=== PATIENT | female | born 1980 | race Caucasian/White ===

== ENCOUNTER 2016-06-18 12:51 | Inpatient (IN) | payer BC ==
[~2016-06-18] VITALS: Ht 175.3 cm; Wt 124.7 kg
[2016-06-18] MEDS: methylPREDNISolone 4 MG TABLET. PO SCH ×2 (12:30→17:30)
[~2016-06-18 12:51] MED LIST: methylPREDNISolone 4 MG TABLET. PO SCH
[2016-06-18 13:45] VITALS: BP 115/65
[2016-06-18 15:45] VITALS: BP 115/65
[2016-06-18] MEDS ORDERED: FENTANYL PF 100 MCG/2 ML VIAL. IV PRN (17:00)
[2016-06-18] MEDS ORDERED: PROCHLORPERAZINE 10 MG/2 ML VIAL. IV PRN (18:00)
[2016-06-18] MEDS: HYDROCODONE/APAP 10/325 TABLET. PO SCH (18:00)
[2016-06-18] MEDS: CYCLOBENZAPRINE 10 MG TABLET. PO SCH (18:00)
[2016-06-18] MEDS ORDERED: ONDANSETRON PF 4 MG/2 ML VIAL. IV PRN (18:00)
[2016-06-18] MEDS ORDERED: PROCHLORPERAZINE 25 MG SUPP.RECT. PR PRN (18:00)
[2016-06-18] MEDS: PANTOPRAZOLE 40 MG TABLET.DR. PO SCH (18:30)
[2016-06-18] MEDS ORDERED: methylPREDNISolone 4 MG TABLET. PO ONE (18:30)
--- NOTE | 2016-06-18 19:01 | PDOC1 ---
History and Physical Date of Admission Date of Admission DATE: 06/18/16 TIME: 18:55 Identification/Chief Complaint Chief Complaint acute onset back pain Problems: Source Source: Chart review, Patient History of Present Illness History of Present Illness 36 y.o female with no significant ,past medical hx, transferred from [place] for [facility] back and further eval/tx. 1 day [employer],. lifted some stuff for his dad who is hospitalized for [place] in another institution, she might have heard something "twist" lower back, and since then has had excruciating 10/10 pain, no hx of chronic lumbago in the past, no chronic steroid use, non smoker. Pt rates pain scale 10/.10, no other red flags of back pain i.e., urinary/ fecal incontinence, hx CA or recent injury, or parasthesisas/weakness of legs/ feet Physiatry consulted and I have discussed - will order MRI, medrol dose pack, pain meds and pT/OT She did get fentanyl, morphine etc at [place] and pain scale at its best is 8/ 10. Past Medical History Cardiovascular: No pertinent hx Pulmonary: No pertinent hx GI: No pertinent hx Heme/Onc: No pertinent hx Hepatobiliary: No pertinent hx Psych: No pertinent hx Rheumatologic: No pertinent hx Infectious disease: No pertinent hx ENT: No pertinent hx Renal/: No pertinent hx Endocrine: No pertinent hx Dermatology: No pertinent hx Past Surgical History Past Surgical History: Other (Obstetrical; hx) Family History Family History: No Significant Social History Smoke: No ALCOHOL: none Drugs: None Current Problem List Problem List Problems Medical Problems: (1) Back pain Status: Acute Problems: Current Medications Current Medications Current Medications Fentanyl Citrate (Fentanyl 2ml Vial) 50 mcg PRN Q2HR PRN IV PAIN Last administered on 06/18/16t 18:02; Start 06/18/16 at 17:00 Ketorolac Tromethamine (Toradol) 30 mg PRN Q6HRS PRN IV PAIN; Start 06/18/16 at 17:00; Stop 06/23/16 at 16:59 Morphine Sulfate 2 mg PRN Q2HR PRN IV PAIN; Start 06/18/16 at 18:00 Ondansetron HCl (Zofran) 4 mg PRN Q6HRS PRN IV NAUSEA/VOMITING; Start 06/18/16 at 18:00 Prochlorperazine Edisylate (Compazine) 10 mg PRN Q6HRS PRN IV NAUSEA/VOMITING; Start 06/18/16 at 18:00 Prochlorperazine (Compazine) 25 mg PRN Q12HR PRN [place] NAUSEA/VOMITING; Start at 18:00 Cyclobenzaprine HCl (Flexeril) 10 mg Q6HRS PO ; Start 06/18/16 at 18:00 Acetaminophen/ Hydrocodone Bitart (Lortab 10/325) 1 tab Q6HRS PO ; Start at 18:00 Lidocaine (Lidoderm) 1 patch DAILY TD ; Start 06/19/16 at 09:00 Methylprednisolone (Medrol) 8 mg BID PO ; Start 06/18/16 at 09:00; Stop at 18:19; Status DC Methylprednisolone (Medrol) 4 mg BIDPCLD PO ; Start 06/18/16 at 12:30; Stop at 18:07; Status DC Methylprednisolone (Medrol) 4 mg TIDPC PO ; Start 06/19/16 at 08:30; Stop at 17:31 Methylprednisolone (Medrol) 8 mg QHS PO ; Start 06/19/16 at 21:00; Stop at 21:01 Methylprednisolone (Medrol) 4 mg QIDAFTMEAL PO ; Start 06/20/16 at 09:00; Stop 06/20/16 at 21:01 Methylprednisolone (Medrol) 4 mg TID PO ; Start 06/21/16 at 09:00; Stop at 21:01 Methylprednisolone (Medrol) 4 mg BID PO ; Start 06/22/16 at 09:00; Stop at 21:01 Methylprednisolone (Medrol) 4 mg DAILY PO ; Start 06/23/16 at 09:00; Stop at 09:01 Pantoprazole Sodium (Protonix) 40 mg DAILYAC PO ; Start 06/18/16 at 18:30 Methylprednisolone (Medrol) 16 mg ONCE ONCE PO ; Start 06/18/16 at 18:30; Stop 06/18/16 at 18:31; Status DC Allergies Allergies: Coded Allergies: warfarin (Verified Allergy, Intermediate, 06/18/16) ROS General: No: Appetite, Chills, Fatigue, Malaise, Night Sweats, Other PSYCHOLOGICAL ROS: No: Anxiety, Behavioral Disorder, Concentration difficultie , Decreased libido, Depression, Disorientation, Hallucinations, Hostility, Irritablity, Memory difficulties, Mood Swings, Obsessive thoughts, Other, Physical abuse, Sexual abuse, Sleep disturbances, Suicidal ideation Eyes: No Blurry vision, No Decreased vision, No Double vision, No Dry eyes, No Excessive tearing, No Eye Pain, No Itchy Eyes, No Loss of vision, No Other, No Photophobia, No Scotomata, No Uses contacts, No Uses glasses HEENT: No: Epistaxis, Heacaches, Hearing change, Nasal congestion, Nasal discharge, Oral lesions, Other, Sinus pain, Sneezing, Snoring, Sore Throat, Tinnitus, Vertigo, Visual Changes, Vocal changes ALLERGY AND IMMUNOLOGY: No: Hives, Insect Bite Sensitivity, Itchy/Watery Eyes, Nasal Congestion, Other, Post Nasal Drip, Seasonal Allergies Hematological and Lymphatic: No: Bleeding Problems, Blood Clots, Blood Transfusions, Brusing, Night Sweats, Other, Pallor, Swollen Lymph Nodes ENDOCRINE: No: Breast Changes, Galactorrhea, Hair Pattern Changes, Hot Flashes , Malaise/lethargy, Mood Swings, Other, Palpitations, Polydipsia/polyuria, Skin Changes, Temperature Intolerance, Unexpected Weight Changes Breast: No New/Changing Breast Lumps, No Nipple changes, No Nipple discharge, No Other Respiratory: No: Cough, Hemoptysis, Orthopnea, Other, Pleuritic Pain, SOB with excertion, Shortness of breath, Sputum Changes, Stridor, Tachypnea, Wheezing Cardiovascular: No Chest Pain, No Edema, No Lt Headedness, No Orthopnea, No Other, No Palpitations, No Paroxysmal Noc. Dyspnea Gastrointestinal: No Abdominal Pain, No Constipation, No Diarrhea, No Hematochezia, No Melena, No Nausea, No Other, No Vomiting Genitourinary: No , No , No , No , No , No , No , No Discharge, No Dysuria, No Flank Pain, No Frequency, No Hematuria, No Incontinence, No Other, No Pain, No Retention, No Urgency Musculoskeletal: Yes Other (as per HPI) Neurological: No Behavorial Changes, No Bowel/Bladder ControlChng, No Confusion , No Dizziness, No Gait Disturbance, No Headaches, No Impaired Coord/balance, No Memory Loss, No Numbness/Tingling, No Other, No Seizures, No Speech Problems , No Tremors, No Visual Changes, No Weakness Skin: No Acne, No Dry Skin, No Eczema, No Hair Changes, No Lumps, No Mole Changes, No Mottling, No Nail Changes, No Other, No Pruritus, No Rash, No Skin Lesion Changes Physical Exam General: Alert, Oriented X3, Cooperative, No acute distress HEENT: PERRLA, EOMI Lungs: Clear to auscultation, Normal air movement Heart: S1S2, RRR, no thrills, no rubs, no gallops, no murmurs Cardiovascular: S1, S2 Breasts: Normal, Rt breast nml w/o mass, Lt breast nml w/o mass, Nipples normal Abdomen: Normal bowel sounds Rectal Exam: not examined PELVIC: Nml ext genitalia Extremities: No clubbing, No cyanosis, No edema, Normal pulses, No tenderness/ swelling Skin: No rashes, No breakdown, No significant lesion Neuro: Normal gait, Normal speech, Strength at 5/5 X4 ext, Normal tone, Sensation intact, Cranial nerves 3-12 NL, Reflexes 2+ Psych/Mental Status: Mental status NL, Mood NL Vitals Vitals Vital Signs Date Time Temp Pulse Resp B/P Pulse Ox O2 Delivery O2 Flow Rate FiO2 06/18/16 18:42 Room Air 06/18/16 18:02 2.0 06/18/16 15:45 97.3 68 18 115/65 99 97.3 VTE Prophylaxis Ordered VTE Prophylaxis Devices: Yes VTE Pharmacological Prophylaxi: Yes Assessment/Plan Assessment/Plan 1. Acute back pain after lifting 2. Obesity PLAN: MRI back PTY/OT pain meds Physiatry consult - done and discussed BAsic labs in AM Dw Dr. Espinoza, RN and pt VIANEY GORE MD Jun 18, 2016 19:01
[2016-06-18 19:53] VITALS: BP 117/51
[2016-06-18] MEDS: MORPHINE SULFATE 2 MG/ML DISP.SYRIN. IV PRN (20:52)
[2016-06-18] MEDS: KETOROLAC TROMETHAMINE 30 MG/ML INJ. IV PRN (20:55)
[2016-06-18 23:13] VITALS: BP 108/45
[2016-06-19] MEDS: CYCLOBENZAPRINE 10 MG TABLET. PO SCH ×4 (00:17→17:43)
[2016-06-19] MEDS: HYDROCODONE/APAP 10/325 TABLET. PO SCH ×4 (00:18→17:43)
[2016-06-19] MEDS: MORPHINE SULFATE 2 MG/ML DISP.SYRIN. IV PRN ×4 (01:19→20:14)
--- NOTE | 2016-06-19 02:18 | CONS ---
DATE OF CONSULTATION: 06/18/2016 ATTENDING PHYSICIAN: Kira Clinton MD The patient was seen at the request of Dr. Hayden for rehab evaluation. ROOM: 428. 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 The patient was visiting her father who was hospitalized at [facility] in [place], [place] last night and picked up a bag; while trying to pick up and delivery driver, she started having severe lower back pain and she had difficulty to try to stand back up with on her knees. Her 14-year-old son has to help her get up. She went home. She used ice packs, ibuprofen and Icy Hot. She did not sleep well last night and at 6 o'clock this morning was seen at [facility], had a CT scan of the lumbar spine, which failed to reveal any acute abnormality. She was transferred here for further evaluation and treatment. The patient denies any chronic lower back pain, but she had sciatica while with her children. The patient admits some numbness and tingling sensation over the left thigh, lateral aspect. The patient denies any trouble with her bowel or bladder control. The patient admits some nausea while getting morphine. The patient lives with her and three children in [place], [place] area home, had multiple stairs to manage. She has been independent with her mobility and self-care skills prior to the present hospitalization. She had hysterectomy done recently. PHYSICAL EXAMINATION: Today revealed young female patient is alert, oriented to time, place, person and circumstance and follows commands appropriately. She is in moderate distress about her back pain. She had painful limited movements of her lumbar spine with moderate degree of left lower thoracic and lumbar paraspinal muscle spasm and tenderness to palpation over left lower thoracic and lumbar paraspinal muscles extending over to sacroiliac joint area. Straight leg raising test causes pain in her lower back on the left side. She had 5/5 grade muscle strength in her lower extremities. Deep tendon reflexes are 2+ and symmetrical and she had slightly decreased touch and pinprick sensation over left lateral femoral cutaneous nerve distribution of left thigh and she had otherwise equal perception of touch and pinprick sensation bilaterally. She had positive Tinel sign over left lateral femoral cutaneous nerve at the inguinal ligament area. She had pain free range of motion on both hip joints. She had crepitus on range of motion of both knee joints without any obvious knee joint effusion. She can roll from side to side despite the pain. I have not tested her transfers or ambulation skills at this time. She is apparently walking to the bathroom using a roller walker. Her skin is intact at this time. ASSESSMENT: Young female with acute left lower thoracic and lumbosacral sprain with left lumbar radiculitis. No clinical evidence of ongoing lumbar radiculopathy to rule out associated herniated disk and she also had left lateral femoral cutaneous nerve lesion with meralgia paresthetica left thigh, mild degenerative joint disease of both knees and mild obesity. RECOMMENDATIONS: Agree with the plans for MRI scan, to start her on Medrol Dosepak, Protonix, hydrocodone, and Flexeril, to ask physical therapy to see her, to also ask [employer] [facility] [facility] [employer] to try her with lumbar corset for her to use while up, hopefully home when her pain is under better control with outpatient followup, to consider trigger point injection to her left sacroiliac joint area and left lumbar paraspinal muscles if the pain persists. Dr. Hayden, I appreciate asking me to participate in the care of this interesting patient. I will be glad to follow her with you as needed for her rehabilitation. VANE TATE MD DR: URIEL/maylin JOB#: [id number] / [id number]
[2016-06-19 03:05] VITALS: BP 108/60
[2016-06-19 05:39] LABS: BASO % 0 % (0-3); EOS % 0 % (0-3); HEMATOCRIT 41.6 % (36.0-47.0); LYMPH # 1.4 x10^3/uL (1.0-4.8); LYMPH % 15 % (24-48); MEAN CORPUSCULAR HEMOGLOBIN 28 pg (25-35); MEAN CORPUSCULAR HGB CONC 34 g/dL (31-37); MEAN CORPUSCULAR VOLUME 84 fL (79-100); MONO % 3 % (0-9); NEUT % 82 % (31-73); PLATELET COUNT 237 x10^3/uL (140-400); RED BLOOD COUNT 4.96 x10^6/uL (3.50-5.40); RED CELL DISTRIBUTION WIDTH 13.3 % (11.5-14.5); WHITE BLOOD COUNT 9.7 x10^3/uL (4.0-11.0)
[2016-06-19 05:43] LABS: PROTHROMBIN TIME PATIENT 12.9 SEC (11.7-14.0)
[2016-06-19] MEDS: PANTOPRAZOLE 40 MG TABLET.DR. PO SCH (05:46)
[2016-06-19] MEDS: KETOROLAC TROMETHAMINE 30 MG/ML INJ. IV PRN (05:49)
[2016-06-19 06:00] LABS: CALCIUM 8.9 mg/dL (8.5-10.1); GFR 62.4; POTASSIUM 4.3 mmol/L (3.5-5.1)
[2016-06-19 07:00] VITALS: BP 93/53
[2016-06-19] MEDS: methylPREDNISolone 4 MG TABLET. PO SCH ×3 (08:02→17:43)
[2016-06-19] MEDS: LIDOCAINE (700MG/PATCH) PATCH. TD SCH (08:04)
--- NOTE | 2016-06-19 08:22 | ACF ---
Admit Criteria Forms Admit Criteria Forms Admit Criteria Forms BACK PAIN Clinical Indications for Admission to Inpatient Care (Place 'X' for any and all applicable criteria): Admission is indicated for ANY ONE of the following (1)(2)(3)(4)(5)(6): [X]I. Inpatient admission required rather than observation care (Also use Back Pain: Observation Care as appropriate) because of ANY ONE of the following [X]a) Severe pain requiring acute inpatient management [ ]b) Immediate inpatient surgery [ ]c) Other condition, treatment or monitoring requiring inpatient admission [ ]II. Spine fracture with significant damage or threat of damage to vertebral column or spinal cord [ ]III. Progressive or severe neurologic deficit [ ]IV. Suspected spinal infection (e.g., epidural abscess, vertebral osteomyelitis)(10) [ ]V. Suspected cause requires inpatient treatment (eg, aortic dissection) [ ]. Cauda equina syndrome as indicated by ANY ONE of the following (9): [ ]a) Bowel dysfunction [ ]b) Bladder dysfunction [ ]c) Saddle anesthesia [ ]d) Neurologic abnormality suggesting cauda equina impingement Extended stay beyond goal length of stay may be needed for (3)(25): [ ]a) Spinal cord compression from stenosis, disk, or tumor (8)(9) [ ]b) Traumatic or pathologic vertebral fracture (33) [ ]c) Vertebral infection(10) [ ]d) Severe pain that is difficult to control [ ]e) Older patients(65 years or older) The original [employer] content created by [employer] has been revised. The portions of the content which have been revised are identified through the use of italic text or in bold, and [facility] [employer] has neither reviewed nor approved the modified material. All other unmodified content is copyright [employer]. Please see references footnoted in the original [employer] edition 2016 CAMERON TORRES Jun 19, 2016 08:22
--- NOTE | 2016-06-19 09:09 | PDOC ---
PROGRESS NOTES Subjective Subjective She admits continued low back pain and numbness left thigh. Objective Objective Vital Signs Date Time Temp Pulse Resp B/P Pulse Ox O2 Delivery O2 Flow Rate FiO2 06/19/16 08:04 Room Air 06/19/16 07:00 97.8 80 18 93/53 95 97.8 06/18/16 18:02 2.0 Intake and Output 06/19/16 07:00 Intake Total 0 ml Output Total 2 ml Balance -2 ml Intake Oral 0 ml Output Urine Total 2 ml Physical Exam Physical Exam She is alert,comfortable supine in bed and continues with painfully limited lumbar spine ROM and tenderness to palpation over left lower thoracic and lumbar paraspinal muscles and sacroiliac joint and decreased sensory perception over left lateral femoral cutaneous nerve distriution. Assessment Assessment Problems Medical Problems: (1) Back pain Status: Acute Plan Plan of Care I have offered her trigger point injections to left lumbar paraspinal muscles and sacroiliac joint area and she would like to wait. Comment Review of Relevant I have reviewed the following items stacie (where applicable) has been applied. Labs Laboratory Tests Test 06/19/16 04:40 White Blood Count 9.7x10^3/uL (4.0-11.0) Red Blood Count 4.96x10^6/uL (3.50-5.40) Hemoglobin 14.0g/dL (12.0-15.5) Hematocrit 41.6% (36.0-47.0) Mean Corpuscular Volume 84fL (79-100) Mean Corpuscular Hemoglobin 28pg (25-35) Mean Corpuscular Hemoglobin Concent 34g/dL (31-37) Red Cell Distribution Width 13.3% (11.5-14.5) Platelet Count 237x10^3/uL (140-400) Neutrophils (%) (Auto) 82% (31-73) Lymphocytes (%) (Auto) 15% (24-48) Monocytes (%) (Auto) 3% (0-9) Eosinophils (%) (Auto) 0% (0-3) Basophils (%) (Auto) 0% (0-3) Neutrophils # (Auto) 8.0x10^3uL (1.8-7.7) Lymphocytes # (Auto) 1.4x10^3/uL (1.0-4.8) Monocytes # (Auto) 0.3x10^3/uL (0.0-1.1) Eosinophils # (Auto) 0.0x10^3/uL (0.0-0.7) Basophils # (Auto) 0.0x10^3/uL (0.0-0.2) Prothrombin Time 12.9SEC (11.7-14.0) Prothromb Time International Ratio 1.0 (0.8-1.1) Sodium Level 139mmol/L (136-145) Potassium Level 4.3mmol/L (3.5-5.1) Chloride Level 103mmol/L (98-107) Carbon Dioxide Level 29mmol/L (21-32) Anion Gap 7 (6-14) Blood Urea Nitrogen 12mg/dL (7-20) Creatinine 1.0mg/dL (0.6-1.0) Estimated GFR (Cockcroft-Gault) 62.4 Glucose Level 123mg/dL (70-99) Calcium Level 8.9mg/dL (8.5-10.1) Laboratory Tests Test 06/19/16 04:40 White Blood Count 9.7x10^3/uL (4.0-11.0) Red Blood Count 4.96x10^6/uL (3.50-5.40) Hemoglobin 14.0g/dL (12.0-15.5) Hematocrit 41.6% (36.0-47.0) Mean Corpuscular Volume 84fL (79-100) Mean Corpuscular Hemoglobin 28pg (25-35) Mean Corpuscular Hemoglobin Concent 34g/dL (31-37) Red Cell Distribution Width 13.3% (11.5-14.5) Platelet Count 237x10^3/uL (140-400) Neutrophils (%) (Auto) 82% (31-73) Lymphocytes (%) (Auto) 15% (24-48) Monocytes (%) (Auto) 3% (0-9) Eosinophils (%) (Auto) 0% (0-3) Basophils (%) (Auto) 0% (0-3) Neutrophils # (Auto) 8.0x10^3uL (1.8-7.7) Lymphocytes # (Auto) 1.4x10^3/uL (1.0-4.8) Monocytes # (Auto) 0.3x10^3/uL (0.0-1.1) Eosinophils # (Auto) 0.0x10^3/uL (0.0-0.7) Basophils # (Auto) 0.0x10^3/uL (0.0-0.2) Prothrombin Time 12.9SEC (11.7-14.0) Prothromb Time International Ratio 1.0 (0.8-1.1) Sodium Level 139mmol/L (136-145) Potassium Level 4.3mmol/L (3.5-5.1) Chloride Level 103mmol/L (98-107) Carbon Dioxide Level 29mmol/L (21-32) Anion Gap 7 (6-14) Blood Urea Nitrogen 12mg/dL (7-20) Creatinine 1.0mg/dL (0.6-1.0) Estimated GFR (Cockcroft-Gault) 62.4 Glucose Level 123mg/dL (70-99) Calcium Level 8.9mg/dL (8.5-10.1) Medications Current Medications Fentanyl Citrate (Fentanyl 2ml Vial) 50 mcg PRN Q2HR PRN IV PAIN Last administered on 06/18/16 18:02; Start 06/18/16 at 17:00 Ketorolac Tromethamine (Toradol) 30 mg PRN Q6HRS PRN IV PAIN Last administered on 06/19/16 05:49; Start 06/18/16 at 17:00; Stop 06/23/16 at 16:59 Morphine Sulfate 2 mg PRN Q2HR PRN IV PAIN Last administered on 06/19/16 08:04 ; Start 06/18/16 at 18:00 Ondansetron HCl (Zofran) 4 mg PRN Q6HRS PRN IV NAUSEA/VOMITING; Start 06/18/16 at 18:00 Prochlorperazine Edisylate (Compazine) 10 mg PRN Q6HRS PRN IV NAUSEA/VOMITING; Start 06/18/16 at 18:00 Prochlorperazine (Compazine) 25 mg PRN Q12HR PRN [place] NAUSEA/VOMITING; Start at 18:00 Cyclobenzaprine HCl (Flexeril) 10 mg Q6HRS PO Last administered on 06/19/16 05 :46; Start 06/18/16 at 18:00 Acetaminophen/ Hydrocodone Bitart (Lortab 10/325) 1 tab Q6HRS PO Last administered on 06/19/16 05:46; Start 06/18/16 at 18:00 Lidocaine (Lidoderm) 1 patch DAILY TD Last administered on 06/19/16 08:04; Start 06/19/16 at 09:00 Methylprednisolone (Medrol) 8 mg BID PO ; Start 06/18/16 at 09:00; Stop at 18:19; Status DC Methylprednisolone (Medrol) 4 mg BIDPCLD PO ; Start 06/18/16 at 12:30; Stop at 18:07; Status DC Methylprednisolone (Medrol) 4 mg TIDPC PO Last administered on 06/19/16 08:02 ; Start 06/19/16 at 08:30; Stop 06/19/16 at 17:31 Methylprednisolone (Medrol) 8 mg QHS PO ; Start 06/19/16 at 21:00; Stop at 21:01 Methylprednisolone (Medrol) 4 mg QIDAFTMEAL PO ; Start 06/20/16 at 09:00; Stop 06/20/16 at 21:01 Methylprednisolone (Medrol) 4 mg TID PO ; Start 06/21/16 at 09:00; Stop at 21:01 Methylprednisolone (Medrol) 4 mg BID PO ; Start 06/22/16 at 09:00; Stop at 21:01 Methylprednisolone (Medrol) 4 mg DAILY PO ; Start 06/23/16 at 09:00; Stop at 09:01 Pantoprazole Sodium (Protonix) 40 mg DAILYAC PO Last administered on 06/19/16 05:46; Start 06/18/16 at 18:30 Methylprednisolone (Medrol) 16 mg ONCE ONCE PO Last administered on 06/18/16 18:30; Start 06/18/16 at 18:30; Stop 06/18/16 at 18:31; Status DC Vitals/I & O Vital Sign - Last 24 Hours 06/18/16 06/18/16 06/18/16 06/18/16 13:45 15:45 18:00 18:02 Temp 97.3 97.3 97.3 97.3 Pulse 68 68 Resp 18 18 B/P 115/65 115/65 Pulse Ox 99 99 O2 Delivery Room Air Room Air Nasal Cannula Nasal Cannula O2 Flow Rate 2.0 2.0 06/18/16 06/18/16 06/18/16 06/18/16 18:32 18:42 19:53 20:10 Temp 97.5 97.5 Pulse 79 Resp 18 B/P 117/51 Pulse Ox 92 O2 Delivery Room Air Room Air Room Air Room Air 06/18/16 06/18/16 06/19/16 06/19/16 20:52 23:13 00:18 01:19 Temp 98.2 98.2 Pulse 66 Resp 18 B/P 108/45 Pulse Ox 93 O2 Delivery Room Air Room Air Nasal Cannula Room Air 06/19/16 06/19/16 06/19/16 06/19/16 01:19 02:00 03:05 05:46 Temp 97.9 97.9 Pulse 66 Resp 18 B/P 108/60 Pulse Ox 91 O2 Delivery Room Air Room Air Room Air Nasal Cannula 06/19/16 06/19/16 06/19/16 07:00 08:00 08:04 Temp 97.8 97.8 Pulse 80 Resp 18 B/P 93/53 Pulse Ox 95 O2 Delivery Room Air Room Air Room Air Intake and Output 06/18/16 06/18/16 06/19/16 15:00 23:00 07:00 Intake Total 0 ml Output Total 2 ml Balance 0 ml -2 ml VANE TATE MD Jun 19, 2016 09:09
[2016-06-19 10:54] VITALS: BP 97/49
[2016-06-19] MEDS ORDERED: LIDOCAINE (700MG/PATCH) PATCH. TD ONE (12:00)
--- NOTE | 2016-06-19 13:41 | PDOC ---
PROGRESS NOTES Chief Complaint Chief Complaint 1. Acute back pain after lifting, 2/2 muscle spasm 2. Obesity PLAN: MRI back pending PTY/OT pain meds Physiatry consult - done and discussed BAsic labs in AM Dw Dr. Espinoza, RN and pt dc tmr History of Present Illness History of Present Illness back pain slightly better Vitals Vitals Vital Signs Date Time Temp Pulse Resp B/P Pulse Ox O2 Delivery O2 Flow Rate FiO2 06/19/16 12:14 Room Air 06/19/16 10:54 97.5 70 18 97/49 94 97.5 06/18/16 18:02 2.0 Physical Exam General: Alert, Oriented X3, Cooperative, No acute distress Heart: Regular rate, Normal S1, Normal S2 Lungs: Clear Abdomen: Normal bowel sounds Extremities: No clubbing, No cyanosis, No edema, Normal pulses, No tenderness/ swelling Skin: No rashes, No breakdown, No significant lesion Labs LABS Laboratory Tests Test 06/19/16 04:40 White Blood Count 9.7x10^3/uL (4.0-11.0) Red Blood Count 4.96x10^6/uL (3.50-5.40) Hemoglobin 14.0g/dL (12.0-15.5) Hematocrit 41.6% (36.0-47.0) Mean Corpuscular Volume 84fL (79-100) Mean Corpuscular Hemoglobin 28pg (25-35) Mean Corpuscular Hemoglobin Concent 34g/dL (31-37) Red Cell Distribution Width 13.3% (11.5-14.5) Platelet Count 237x10^3/uL (140-400) Neutrophils (%) (Auto) 82% (31-73) Lymphocytes (%) (Auto) 15% (24-48) Monocytes (%) (Auto) 3% (0-9) Eosinophils (%) (Auto) 0% (0-3) Basophils (%) (Auto) 0% (0-3) Neutrophils # (Auto) 8.0x10^3uL (1.8-7.7) Lymphocytes # (Auto) 1.4x10^3/uL (1.0-4.8) Monocytes # (Auto) 0.3x10^3/uL (0.0-1.1) Eosinophils # (Auto) 0.0x10^3/uL (0.0-0.7) Basophils # (Auto) 0.0x10^3/uL (0.0-0.2) Prothrombin Time 12.9SEC (11.7-14.0) Prothromb Time International Ratio 1.0 (0.8-1.1) Sodium Level 139mmol/L (136-145) Potassium Level 4.3mmol/L (3.5-5.1) Chloride Level 103mmol/L (98-107) Carbon Dioxide Level 29mmol/L (21-32) Anion Gap 7 (6-14) Blood Urea Nitrogen 12mg/dL (7-20) Creatinine 1.0mg/dL (0.6-1.0) Estimated GFR (Cockcroft-Gault) 62.4 Glucose Level 123mg/dL (70-99) Calcium Level 8.9mg/dL (8.5-10.1) Review of Systems Review of Systems no fever, chills, sob or chest pain Assessment and Plan Assessmemt and Plan Problems Medical Problems: (1) Back pain Status: Acute Problems: Comment Review of Relevant I have reviewed the following items stacie (where applicable) has been applied. Labs Laboratory Tests Test 06/19/16 04:40 White Blood Count 9.7x10^3/uL (4.0-11.0) Red Blood Count 4.96x10^6/uL (3.50-5.40) Hemoglobin 14.0g/dL (12.0-15.5) Hematocrit 41.6% (36.0-47.0) Mean Corpuscular Volume 84fL (79-100) Mean Corpuscular Hemoglobin 28pg (25-35) Mean Corpuscular Hemoglobin Concent 34g/dL (31-37) Red Cell Distribution Width 13.3% (11.5-14.5) Platelet Count 237x10^3/uL (140-400) Neutrophils (%) (Auto) 82% (31-73) Lymphocytes (%) (Auto) 15% (24-48) Monocytes (%) (Auto) 3% (0-9) Eosinophils (%) (Auto) 0% (0-3) Basophils (%) (Auto) 0% (0-3) Neutrophils # (Auto) 8.0x10^3uL (1.8-7.7) Lymphocytes # (Auto) 1.4x10^3/uL (1.0-4.8) Monocytes # (Auto) 0.3x10^3/uL (0.0-1.1) Eosinophils # (Auto) 0.0x10^3/uL (0.0-0.7) Basophils # (Auto) 0.0x10^3/uL (0.0-0.2) Prothrombin Time 12.9SEC (11.7-14.0) Prothromb Time International Ratio 1.0 (0.8-1.1) Sodium Level 139mmol/L (136-145) Potassium Level 4.3mmol/L (3.5-5.1) Chloride Level 103mmol/L (98-107) Carbon Dioxide Level 29mmol/L (21-32) Anion Gap 7 (6-14) Blood Urea Nitrogen 12mg/dL (7-20) Creatinine 1.0mg/dL (0.6-1.0) Estimated GFR (Cockcroft-Gault) 62.4 Glucose Level 123mg/dL (70-99) Calcium Level 8.9mg/dL (8.5-10.1) Laboratory Tests Test 06/19/16 04:40 White Blood Count 9.7x10^3/uL (4.0-11.0) Red Blood Count 4.96x10^6/uL (3.50-5.40) Hemoglobin 14.0g/dL (12.0-15.5) Hematocrit 41.6% (36.0-47.0) Mean Corpuscular Volume 84fL (79-100) Mean Corpuscular Hemoglobin 28pg (25-35) Mean Corpuscular Hemoglobin Concent 34g/dL (31-37) Red Cell Distribution Width 13.3% (11.5-14.5) Platelet Count 237x10^3/uL (140-400) Neutrophils (%) (Auto) 82% (31-73) Lymphocytes (%) (Auto) 15% (24-48) Monocytes (%) (Auto) 3% (0-9) Eosinophils (%) (Auto) 0% (0-3) Basophils (%) (Auto) 0% (0-3) Neutrophils # (Auto) 8.0x10^3uL (1.8-7.7) Lymphocytes # (Auto) 1.4x10^3/uL (1.0-4.8) Monocytes # (Auto) 0.3x10^3/uL (0.0-1.1) Eosinophils # (Auto) 0.0x10^3/uL (0.0-0.7) Basophils # (Auto) 0.0x10^3/uL (0.0-0.2) Prothrombin Time 12.9SEC (11.7-14.0) Prothromb Time International Ratio 1.0 (0.8-1.1) Sodium Level 139mmol/L (136-145) Potassium Level 4.3mmol/L (3.5-5.1) Chloride Level 103mmol/L (98-107) Carbon Dioxide Level 29mmol/L (21-32) Anion Gap 7 (6-14) Blood Urea Nitrogen 12mg/dL (7-20) Creatinine 1.0mg/dL (0.6-1.0) Estimated GFR (Cockcroft-Gault) 62.4 Glucose Level 123mg/dL (70-99) Calcium Level 8.9mg/dL (8.5-10.1) Medications Current Medications Fentanyl Citrate (Fentanyl 2ml Vial) 50 mcg PRN Q2HR PRN IV PAIN Last administered on 06/18/16 18:02; Start 06/18/16 at 17:00 Ketorolac Tromethamine (Toradol) 30 mg PRN Q6HRS PRN IV PAIN Last administered on 06/19/16 05:49; Start 06/18/16 at 17:00; Stop 06/23/16 at 16:59 Morphine Sulfate 2 mg PRN Q2HR PRN IV PAIN Last administered on 06/19/16 08:04 ; Start 06/18/16 at 18:00 Ondansetron HCl (Zofran) 4 mg PRN Q6HRS PRN IV NAUSEA/VOMITING; Start 06/18/16 at 18:00 Prochlorperazine Edisylate (Compazine) 10 mg PRN Q6HRS PRN IV NAUSEA/VOMITING; Start 06/18/16 at 18:00 Prochlorperazine (Compazine) 25 mg PRN Q12HR PRN [place] NAUSEA/VOMITING; Start at 18:00 Cyclobenzaprine HCl (Flexeril) 10 mg Q6HRS PO Last administered on 06/19/16 12 :14; Start 06/18/16 at 18:00 Acetaminophen/ Hydrocodone Bitart (Lortab 10/325) 1 tab Q6HRS PO Last administered on 06/19/16 12:14; Start 06/18/16 at 18:00 Lidocaine (Lidoderm) 1 patch DAILY TD Last administered on 06/19/16 08:04; Start 06/19/16 at 09:00 Methylprednisolone (Medrol) 8 mg BID PO ; Start 06/18/16 at 09:00; Stop at 18:19; Status DC Methylprednisolone (Medrol) 4 mg BIDPCLD PO ; Start 06/18/16 at 12:30; Stop at 18:07; Status DC Methylprednisolone (Medrol) 4 mg TIDPC PO Last administered on 06/19/16 12:16 ; Start 06/19/16 at 08:30; Stop 06/19/16 at 17:31 Methylprednisolone (Medrol) 8 mg QHS PO ; Start 06/19/16 at 21:00; Stop at 21:01 Methylprednisolone (Medrol) 4 mg QIDAFTMEAL PO ; Start 06/20/16 at 09:00; Stop 06/20/16 at 21:01 Methylprednisolone (Medrol) 4 mg TID PO ; Start 06/21/16 at 09:00; Stop at 21:01 Methylprednisolone (Medrol) 4 mg BID PO ; Start 06/22/16 at 09:00; Stop at 21:01 Methylprednisolone (Medrol) 4 mg DAILY PO ; Start 06/23/16 at 09:00; Stop at 09:01 Pantoprazole Sodium (Protonix) 40 mg DAILYAC PO Last administered on 06/19/16 05:46; Start 06/18/16 at 18:30 Methylprednisolone (Medrol) 16 mg ONCE ONCE PO Last administered on 06/18/16 18:30; Start 06/18/16 at 18:30; Stop 06/18/16 at 18:31; Status DC Lidocaine (Lidoderm) 1 patch 1X ONCE TD Last administered on 06/19/16t 12:14; Start 06/19/16 at 12:00; Stop 06/19/16 at 12:01; Status DC Vitals/I & O Vital Sign - Last 24 Hours 06/18/16 06/18/16 06/18/16 06/18/16 13:45 15:45 18:00 18:02 Temp 97.3 97.3 97.3 97.3 Pulse 68 68 Resp 18 18 B/P 115/65 115/65 Pulse Ox 99 99 O2 Delivery Room Air Room Air Nasal Cannula Nasal Cannula O2 Flow Rate 2.0 2.0 06/18/16 06/18/16 06/18/16 06/18/16 18:32 18:42 19:53 20:10 Temp 97.5 97.5 Pulse 79 Resp 18 B/P 117/51 Pulse Ox 92 O2 Delivery Room Air Room Air Room Air Room Air 06/18/16 06/18/16 06/19/16 06/19/16 20:52 23:13 00:18 01:19 Temp 98.2 98.2 Pulse 66 Resp 18 B/P 108/45 Pulse Ox 93 O2 Delivery Room Air Room Air Nasal Cannula Room Air 06/19/16 06/19/16 06/19/16 06/19/16 01:19 03:05 05:46 07:00 Temp 97.9 97.8 97.9 97.8 Pulse 66 80 Resp 18 18 B/P 108/60 93/53 Pulse Ox 91 95 O2 Delivery Room Air Room Air Nasal Cannula Room Air 06/19/16 06/19/16 06/19/16 06/19/16 08:00 08:04 08:35 10:54 Temp 97.5 97.5 Pulse 70 Resp 18 B/P 97/49 Pulse Ox 94 O2 Delivery Room Air Room Air Room Air Room Air 06/19/16 12:14 O2 Delivery Room Air Intake and Output 06/18/16 06/18/16 06/19/16 15:00 23:00 07:00 Intake Total 0 ml Output Total 2 ml Balance 0 ml -2 ml ASHLI VILLALOBOS MD Jun 19, 2016 13:41
[2016-06-19] MEDS ORDERED: ONDANSETRON PF 4 MG/2 ML VIAL. IV PRN (13:45)
[2016-06-19] MEDS ORDERED: ACETAMINOPHEN 325 MG TABLET. PO PRN (13:45)
--- NOTE | 2016-06-19 14:09 | RAD ---
PROCEDURE MRI lumbar spine without contrast. HISTORY Low back pain and left leg radiculopathy, symptoms for 2 days. TECHNIQUE Sagittal T1, sagittal T2, sagittal STIR, axial T1, and axial T2 sequences are provided. COMPARISON CT from 1 day earlier. FINDINGS There is no malalignment. There is no marrow edema. There is no worrisome marrow lesion. There is an L5 hemangioma. There is disc desiccation at L3-L4, disc height is maintained. The conus medullaris is normal in signal intensity and in position. Subcutaneous edema is noted. Degenerative findings by individual level are as follows: L1-L2, L2-L3: There is no canal or foraminal compromise. L3-L4: There is a minimal disc bulge. There is a left subarticular/foraminal protrusion with annular fissure. This contacts the exiting nerve root. There is no canal stenosis. L4-L5: Minimal disc bulge and facet hypertrophy are noted with slight right lateral recess narrowing but no canal stenosis. L5-S1: There is facet hypertrophy without canal or foraminal compromise. IMPRESSION Left subarticular/foraminal protrusion at L3-L4 contacting the exiting L3 nerve root. Electronically signed by: Case Greco MD (Jun 19, 2016 14:07:57)
[2016-06-19 19:00] VITALS: BP 118/62
[2016-06-19 19:25] LABS: MAGNESIUM 1.7 mg/dL (1.8-2.4); PHOSPHORUS 3.3 mg/dL (2.6-4.7)
[2016-06-19] MEDS ORDERED: methylPREDNISolone 4 MG TABLET. PO SCH (21:00)
[2016-06-19 23:06] VITALS: BP 102/50
[2016-06-20] MEDS: HYDROCODONE/APAP 10/325 TABLET. PO SCH ×2 (00:12→07:26)
[2016-06-20] MEDS: CYCLOBENZAPRINE 10 MG TABLET. PO SCH ×4 (00:12→17:38)
[2016-06-20] MEDS: MORPHINE SULFATE 2 MG/ML DISP.SYRIN. IV PRN ×2 (03:21→21:18)
[2016-06-20 03:25] VITALS: BP 106/57
[2016-06-20 07:00] VITALS: BP 124/79
--- NOTE | 2016-06-20 09:26 | PDOC ---
PROGRESS NOTES Subjective Subjective She admits continued low back pain. Objective Objective Vital Signs Date Time Temp Pulse Resp B/P Pulse Ox O2 Delivery O2 Flow Rate FiO2 06/20/16 07:26 16 Room Air 06/20/16 07:00 98.2 75 124/79 96 98.2 06/18/16 18:02 2.0 Intake and Output 06/20/16 06:59 # Voids 5 Physical Exam Physical Exam She is alert,supine in bed and and continues with painfully limited lumbar spine ROM. 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 Assessment Assessment Problems Medical Problems: (1) Back pain Status: Acute Plan Plan of Care To proceed with injecting painful left lumbar paraspinal muscles and if needed sacroiliac joint with depomedrol and to try percocet in place of hydrocodone. Comment Review of Relevant I have reviewed the following items stacie (where applicable) has been applied. Labs Laboratory Tests Test 06/19/16 04:40 06/19/16 19:00 White Blood Count 9.7x10^3/uL (4.0-11.0) Red Blood Count 4.96x10^6/uL (3.50-5.40) Hemoglobin 14.0g/dL (12.0-15.5) Hematocrit 41.6% (36.0-47.0) Mean Corpuscular Volume 84fL (79-100) Mean Corpuscular Hemoglobin 28pg (25-35) Mean Corpuscular Hemoglobin Concent 34g/dL (31-37) Red Cell Distribution Width 13.3% (11.5-14.5) Platelet Count 237x10^3/uL (140-400) Neutrophils (%) (Auto) 82% (31-73) Lymphocytes (%) (Auto) 15% (24-48) Monocytes (%) (Auto) 3% (0-9) Eosinophils (%) (Auto) 0% (0-3) Basophils (%) (Auto) 0% (0-3) Neutrophils # (Auto) 8.0x10^3uL (1.8-7.7) Lymphocytes # (Auto) 1.4x10^3/uL (1.0-4.8) Monocytes # (Auto) 0.3x10^3/uL (0.0-1.1) Eosinophils # (Auto) 0.0x10^3/uL (0.0-0.7) Basophils # (Auto) 0.0x10^3/uL (0.0-0.2) Prothrombin Time 12.9SEC (11.7-14.0) Prothromb Time International Ratio 1.0 (0.8-1.1) Sodium Level 139mmol/L (136-145) Potassium Level 4.3mmol/L (3.5-5.1) Chloride Level 103mmol/L (98-107) Carbon Dioxide Level 29mmol/L (21-32) Anion Gap 7 (6-14) Blood Urea Nitrogen 12mg/dL (7-20) Creatinine 1.0mg/dL (0.6-1.0) Estimated GFR (Cockcroft-Gault) 62.4 Glucose Level 123mg/dL (70-99) Calcium Level 8.9mg/dL (8.5-10.1) Phosphorus Level 3.3mg/dL (2.6-4.7) Magnesium Level 1.7mg/dL (1.8-2.4) Laboratory Tests Test 06/19/16 19:00 Phosphorus Level 3.3mg/dL (2.6-4.7) Magnesium Level 1.7mg/dL (1.8-2.4) Medications Current Medications Fentanyl Citrate (Fentanyl 2ml Vial) 50 mcg PRN Q2HR PRN IV PAIN Last administered on 06/18/16 18:02; Start 06/18/16 at 17:00 Ketorolac Tromethamine (Toradol) 30 mg PRN Q6HRS PRN IV PAIN Last administered on 06/19/16 05:49; Start 06/18/16 at 17:00; Stop 06/23/16 at 16:59 Morphine Sulfate 2 mg PRN Q2HR PRN IV PAIN Last administered on 06/20/16 03:21 ; Start 06/18/16 at 18:00 Ondansetron HCl (Zofran) 4 mg PRN Q6HRS PRN IV NAUSEA/VOMITING; Start 06/18/16 at 18:00 Prochlorperazine Edisylate (Compazine) 10 mg PRN Q6HRS PRN IV NAUSEA/VOMITING; Start 06/18/16 at 18:00 Prochlorperazine (Compazine) 25 mg PRN Q12HR PRN [place] NAUSEA/VOMITING; Start at 18:00 Cyclobenzaprine HCl (Flexeril) 10 mg Q6HRS PO Last administered on 06/20/16 07 :26; Start 06/18/16 at 18:00 Acetaminophen/ Hydrocodone Bitart (Lortab 10/325) 1 tab Q6HRS PO Last administered on 06/20/16 07:26; Start 06/18/16 at 18:00; Stop 06/20/16 at 09:19 ; Status DC Lidocaine (Lidoderm) 1 patch DAILY TD Last administered on 06/19/16 08:04; Start 06/19/16 at 09:00 Methylprednisolone (Medrol) 8 mg BID PO ; Start 06/18/16 at 09:00; Stop at 18:19; Status DC Methylprednisolone (Medrol) 4 mg BIDPCLD PO ; Start 06/18/16 at 12:30; Stop at 18:07; Status DC Methylprednisolone (Medrol) 4 mg TIDPC PO Last administered on 06/19/16 17:43 ; Start 06/19/16 at 08:30; Stop 06/19/16 at 17:31; Status DC Methylprednisolone (Medrol) 8 mg QHS PO Last administered on 06/19/16 20:23; Start 06/19/16 at 21:00; Stop 06/19/16 at 21:01; Status DC Methylprednisolone (Medrol) 4 mg QIDAFTMEAL PO ; Start 06/20/16 at 09:00; Stop 06/20/16 at 21:01 Methylprednisolone (Medrol) 4 mg TID PO ; Start 06/21/16 at 09:00; Stop at 21:01 Methylprednisolone (Medrol) 4 mg BID PO ; Start 06/22/16 at 09:00; Stop at 21:01 Methylprednisolone (Medrol) 4 mg DAILY PO ; Start 06/23/16 at 09:00; Stop at 09:01 Pantoprazole Sodium (Protonix) 40 mg DAILYAC PO Last administered on 06/19/16 05:46; Start 06/18/16 at 18:30 Methylprednisolone (Medrol) 16 mg ONCE ONCE PO Last administered on 06/18/16t 18:30; Start 06/18/16 at 18:30; Stop 06/18/16 at 18:31; Status DC Lidocaine (Lidoderm) 1 patch 1X ONCE TD Last administered on 06/19/16t 12:14; Start 06/19/16 at 12:00; Stop 06/19/16 at 12:01; Status DC Acetaminophen (Tylenol) 650 mg PRN Q6HRS PRN PO FEVER; Start 06/19/16 at 13:45 Ondansetron HCl (Zofran) 4 mg PRN Q6HRS PRN IV NAUSEA/VOMITING; Start 06/19/16 at 13:45 Methylprednisolone Acetate (Depo-Medrol 40mg Vial) 40 mg 1X ONCE IM ; Start at 09:15; Stop 06/20/16 at 09:16; Status UNV Bupivacaine HCl (Sensorcaine-Mpf 0.25%) 10 ml 1X ONCE IJ ; Start 06/20/16 at 09 :15; Stop 06/20/16 at 09:16; Status UNV Oxycodone/ Acetaminophen (Percocet 10/325) 1 tab PRN Q4HRS PRN PO PAIN; Start 06/20/16 at 09:15; Status UNV Vitals/I & O Vital Sign - Last 24 Hours 06/19/16 06/19/16 06/19/16 06/19/16 10:54 12:14 14:19 17:43 Temp 97.5 97.5 Pulse 70 Resp 18 B/P 97/49 Pulse Ox 94 O2 Delivery Room Air Room Air Room Air Room Air 06/19/16 06/19/16 06/19/16 06/19/16 19:00 20:00 20:14 23:06 Temp 98.0 98.2 98.0 98.2 Pulse 87 63 Resp 18 16 18 B/P 118/62 102/50 Pulse Ox 93 95 O2 Delivery Room Air Room Air Room Air Room Air 06/20/16 06/20/16 06/20/16 06/20/16 00:12 01:12 03:21 03:25 Temp 98.0 98.0 Pulse 72 Resp 16 14 16 18 B/P 106/57 Pulse Ox 94 O2 Delivery Room Air Room Air Room Air Room Air 06/20/16 06/20/16 06/20/16 03:51 07:00 07:26 Temp 98.2 98.2 Pulse 75 Resp 16 18 16 B/P 124/79 Pulse Ox 96 O2 Delivery Room Air Room Air Room Air VANE TATE MD Jun 20, 2016 09:26
[2016-06-20] MEDS ORDERED: BUPIVACAINE MPF 0.25% 10 ML VIAL. IJ ONE (09:30)
[2016-06-20] MEDS ORDERED: methylPREDNISolone ACETATE 40 MG/ML VIAL. IM ONE (09:30)
[2016-06-20] MEDS: PANTOPRAZOLE 40 MG TABLET.DR. PO SCH (09:43)
[2016-06-20] MEDS: methylPREDNISolone 4 MG TABLET. PO SCH ×4 (09:43→20:50)
[2016-06-20] MEDS: OXYCODONE/APAP 10/325 TABLET. PO PRN ×2 (09:43→16:26)
[2016-06-20] MEDS: KETOROLAC TROMETHAMINE 30 MG/ML INJ. IV PRN ×2 (09:44→16:27)
[2016-06-20] MEDS: LIDOCAINE (700MG/PATCH) PATCH. TD SCH (09:44)
--- NOTE | 2016-06-20 10:07 | PDOC4 ---
PROCEDURE Procedure At her request,I have injected painful left sacroiliac joint area with marcaine and depomedrol solution under aseptic skin technique and she tolerated the procedure satisfactorily without any side effects VANE TATE MD Jun 20, 2016 10:07
[2016-06-20 11:00] VITALS: BP 111/63
[2016-06-20] MEDS ORDERED: MAGNESIUM SULFATE 2GM 50 ML IV ONE (11:30)
[2016-06-20] MEDS: BISACODYL 5 MG TABLET.DR. PO PRN (12:54)
--- NOTE | 2016-06-20 13:13 | PDOC ---
PROGRESS NOTES Chief Complaint Chief Complaint 1. Acute back pain after lifting, 2/2 muscle spasm, post left sacroiliac join injection 06/20 2. Obesity 3. hypomagnesemia PLAN: MRI back done PTY/OT pain meds Physiatry consult - done and discussed BAsic labs in AM Dw Dr. Espinoza, RN and pt dc tmr History of Present Illness History of Present Illness back pain slightly better Vitals Vitals Vital Signs Date Time Temp Pulse Resp B/P Pulse Ox O2 Delivery O2 Flow Rate FiO2 06/20/16 11:00 98.1 69 18 111/63 95 Room Air 98.1 Physical Exam General: Alert, Oriented X3, Cooperative, No acute distress Heart: Regular rate, Normal S1, Normal S2 Lungs: Clear Abdomen: Normal bowel sounds Extremities: No clubbing, No cyanosis, No edema, Normal pulses, No tenderness/ swelling Skin: No rashes, No breakdown, No significant lesion Labs LABS Laboratory Tests Test 06/19/16 19:00 Phosphorus Level 3.3mg/dL (2.6-4.7) Magnesium Level 1.7mg/dL (1.8-2.4) Review of Systems Review of Systems no fever, chills, sob or chest pain Assessment and Plan Assessmemt and Plan Problems Medical Problems: (1) Back pain Status: Acute Problems: Comment Review of Relevant I have reviewed the following items stacie (where applicable) has been applied. Labs Laboratory Tests Test 06/19/16 04:40 06/19/16 19:00 White Blood Count 9.7x10^3/uL (4.0-11.0) Red Blood Count 4.96x10^6/uL (3.50-5.40) Hemoglobin 14.0g/dL (12.0-15.5) Hematocrit 41.6% (36.0-47.0) Mean Corpuscular Volume 84fL (79-100) Mean Corpuscular Hemoglobin 28pg (25-35) Mean Corpuscular Hemoglobin Concent 34g/dL (31-37) Red Cell Distribution Width 13.3% (11.5-14.5) Platelet Count 237x10^3/uL (140-400) Neutrophils (%) (Auto) 82% (31-73) Lymphocytes (%) (Auto) 15% (24-48) Monocytes (%) (Auto) 3% (0-9) Eosinophils (%) (Auto) 0% (0-3) Basophils (%) (Auto) 0% (0-3) Neutrophils # (Auto) 8.0x10^3uL (1.8-7.7) Lymphocytes # (Auto) 1.4x10^3/uL (1.0-4.8) Monocytes # (Auto) 0.3x10^3/uL (0.0-1.1) Eosinophils # (Auto) 0.0x10^3/uL (0.0-0.7) Basophils # (Auto) 0.0x10^3/uL (0.0-0.2) Prothrombin Time 12.9SEC (11.7-14.0) Prothromb Time International Ratio 1.0 (0.8-1.1) Sodium Level 139mmol/L (136-145) Potassium Level 4.3mmol/L (3.5-5.1) Chloride Level 103mmol/L (98-107) Carbon Dioxide Level 29mmol/L (21-32) Anion Gap 7 (6-14) Blood Urea Nitrogen 12mg/dL (7-20) Creatinine 1.0mg/dL (0.6-1.0) Estimated GFR (Cockcroft-Gault) 62.4 Glucose Level 123mg/dL (70-99) Calcium Level 8.9mg/dL (8.5-10.1) Phosphorus Level 3.3mg/dL (2.6-4.7) Magnesium Level 1.7mg/dL (1.8-2.4) Laboratory Tests Test 06/19/16 19:00 Phosphorus Level 3.3mg/dL (2.6-4.7) Magnesium Level 1.7mg/dL (1.8-2.4) Medications Current Medications Fentanyl Citrate (Fentanyl 2ml Vial) 50 mcg PRN Q2HR PRN IV PAIN Last administered on 06/18/16 18:02; Start 06/18/16 at 17:00 Ketorolac Tromethamine (Toradol) 30 mg PRN Q6HRS PRN IV PAIN Last administered on 06/20/16 09:44; Start 06/18/16 at 17:00; Stop 06/23/16 at 16:59 Morphine Sulfate 2 mg PRN Q2HR PRN IV PAIN Last administered on 06/20/16 03:21 ; Start 06/18/16 at 18:00 Ondansetron HCl (Zofran) 4 mg PRN Q6HRS PRN IV NAUSEA/VOMITING; Start 06/18/16 at 18:00 Prochlorperazine Edisylate (Compazine) 10 mg PRN Q6HRS PRN IV NAUSEA/VOMITING; Start 06/18/16 at 18:00 Prochlorperazine (Compazine) 25 mg PRN Q12HR PRN [place] NAUSEA/VOMITING; Start at 18:00 Cyclobenzaprine HCl (Flexeril) 10 mg Q6HRS PO Last administered on 06/20/16 12 :54; Start 06/18/16 at 18:00 Acetaminophen/ Hydrocodone Bitart (Lortab 10/325) 1 tab Q6HRS PO Last administered on 06/20/16 07:26; Start 06/18/16 at 18:00; Stop 06/20/16 at 09:19 ; Status DC Lidocaine (Lidoderm) 1 patch DAILY TD Last administered on 06/20/16 09:44; Start 06/19/16 at 09:00 Methylprednisolone (Medrol) 8 mg BID PO ; Start 06/18/16 at 09:00; Stop at 18:19; Status DC Methylprednisolone (Medrol) 4 mg BIDPCLD PO ; Start 06/18/16 at 12:30; Stop at 18:07; Status DC Methylprednisolone (Medrol) 4 mg TIDPC PO Last administered on 06/19/16 17:43 ; Start 06/19/16 at 08:30; Stop 06/19/16 at 17:31; Status DC Methylprednisolone (Medrol) 8 mg QHS PO Last administered on 06/19/16 20:23; Start 06/19/16 at 21:00; Stop 06/19/16 at 21:01; Status DC Methylprednisolone (Medrol) 4 mg QIDAFTMEAL PO Last administered on 06/20/16 12:54; Start 06/20/16 at 09:00; Stop 06/20/16 at 21:01 Methylprednisolone (Medrol) 4 mg TID PO ; Start 06/21/16 at 09:00; Stop at 21:01 Methylprednisolone (Medrol) 4 mg BID PO ; Start 06/22/16 at 09:00; Stop at 21:01 Methylprednisolone (Medrol) 4 mg DAILY PO ; Start 06/23/16 at 09:00; Stop at 09:01 Pantoprazole Sodium (Protonix) 40 mg DAILYAC PO Last administered on 06/20/16 09:43; Start 06/18/16 at 18:30 Methylprednisolone (Medrol) 16 mg ONCE ONCE PO Last administered on 06/18/16 18:30; Start 06/18/16 at 18:30; Stop 06/18/16 at 18:31; Status DC Lidocaine (Lidoderm) 1 patch 1X ONCE TD Last administered on 06/19/16 12:14; Start 06/19/16 at 12:00; Stop 06/19/16 at 12:01; Status DC Acetaminophen (Tylenol) 650 mg PRN Q6HRS PRN PO FEVER; Start 06/19/16 at 13:45 Ondansetron HCl (Zofran) 4 mg PRN Q6HRS PRN IV NAUSEA/VOMITING; Start 06/19/16 at 13:45 Methylprednisolone Acetate (Depo-Medrol 40mg Vial) 40 mg 1X ONCE IM Last administered on 06/20/16 09:47; Start 06/20/16 at 09:30; Stop 06/20/16 at 09:31 ; Status DC Bupivacaine HCl (Sensorcaine-Mpf 0.25%) 10 ml 1X ONCE IJ Last administered on 06/20/16 09:46; Start 06/20/16 at 09:30; Stop 06/20/16 at 09:31; Status DC Oxycodone/ Acetaminophen 1 tab 1 tab PRN Q4HRS PRN PO PAIN Last administered on 06/20/16 09:43; Start 06/20/16 at 09:15 Magnesium Sulfate/ Dextrose (Magnesium Sulfate PREMIX 2GM) 50 ml @ 25 mls/hr 1X ONCE IV Last administered on 06/20/16 12:55; Start 06/20/16 at 11:30; Stop 06/20/16 at 13:29 Bisacodyl (Dulcolax Tab) 10 mg PRN DAILY PRN PO CONSTIPATION Last administered on 4/20/17at 12:54; Start 06/20/16 at 12:00 Vitals/I & O Vital Sign - Last 24 Hours 06/19/16 06/19/16 06/19/16 06/19/16 14:19 17:43 19:00 20:00 Temp 98.0 98.0 Pulse 87 Resp 18 B/P 118/62 Pulse Ox 93 O2 Delivery Room Air Room Air Room Air Room Air 06/19/16 06/19/16 06/20/16 06/20/16 20:14 23:06 00:12 01:12 Temp 98.2 98.2 Pulse 63 Resp 16 18 16 14 B/P 102/50 Pulse Ox 95 O2 Delivery Room Air Room Air Room Air Room Air 06/20/16 06/20/16 06/20/16 06/20/16 03:21 03:25 03:51 07:00 Temp 98.0 98.2 98.0 98.2 Pulse 72 75 Resp 16 18 16 18 B/P 106/57 124/79 Pulse Ox 94 96 O2 Delivery Room Air Room Air Room Air Room Air 06/20/16 06/20/16 07:26 11:00 Temp 98.1 98.1 Pulse 69 Resp 16 18 B/P 111/63 Pulse Ox 95 O2 Delivery Room Air Room Air ASHLI VILLALOBOS MD Jun 20, 2016 13:13
[2016-06-20 14:55] VITALS: BP 104/55
[2016-06-20] MEDS ORDERED: DIPHENHYDRAMINE HCL 25 MG CAPSULE PO PRN (17:30)
[2016-06-20 19:00] VITALS: BP 114/76
[2016-06-20] MEDS: HYDROCODONE/APAP 10/325 TABLET. PO PRN (20:50)
[2016-06-20 23:00] VITALS: BP 104/65
[2016-06-21] MEDS: KETOROLAC TROMETHAMINE 30 MG/ML INJ. IV PRN ×2 (01:51→09:07)
[2016-06-21 03:00] VITALS: BP 122/85
[2016-06-21 05:19] LABS: CALCIUM 8.6 mg/dL (8.5-10.1); CREATININE 0.9 mg/dL (0.6-1.0); GFR 70.5; MAGNESIUM 2.5 mg/dL (1.8-2.4); POTASSIUM 4.4 mmol/L (3.5-5.1)
[2016-06-21] MEDS: CYCLOBENZAPRINE 10 MG TABLET. PO SCH ×3 (06:18→11:51)
[2016-06-21] MEDS: HYDROCODONE/APAP 10/325 TABLET. PO PRN (06:19)
[2016-06-21] MEDS: PANTOPRAZOLE 40 MG TABLET.DR. PO SCH (06:22)
[2016-06-21 07:00] VITALS: BP 131/70
--- NOTE | 2016-06-21 08:49 | PDOC ---
PROGRESS NOTES Subjective Subjective She is constipated and continues with low back pain but better but somewhat anxious about going home. Objective Objective Vital Signs Date Time Temp Pulse Resp B/P Pulse Ox O2 Delivery O2 Flow Rate FiO2 06/21/16 07:00 97.9 63 18 131/70 97 Room Air 97.9 06/18/16 18:02 2.0 Intake and Output 06/21/16 07:00 Intake Total 300 ml Balance 300 ml Intake Oral 300 ml # Voids 4 Physical Exam Physical Exam She is walking in hallway with roller walker and lumbar corset.She had some reaction to percocet. Assessment Assessment Problems Medical Problems: (1) Back pain Status: Acute Plan Plan of Correction today with out patient physical therapy follow up and I have written prescription for it and also to get her a roller walker for home use until pain is much less. Comment Review of Relevant I have reviewed the following items stacie (where applicable) has been applied. Labs Laboratory Tests Test 06/19/16 19:00 06/21/16 04:30 Phosphorus Level 3.3mg/dL (2.6-4.7) Magnesium Level 1.7mg/dL (1.8-2.4) 2.5mg/dL (1.8-2.4) Sodium Level 141mmol/L (136-145) Potassium Level 4.4mmol/L (3.5-5.1) Chloride Level 106mmol/L (98-107) Carbon Dioxide Level 27mmol/L (21-32) Anion Gap 8 (6-14) Blood Urea Nitrogen 14mg/dL (7-20) Creatinine 0.9mg/dL (0.6-1.0) Estimated GFR (Cockcroft-Gault) 70.5 Glucose Level 126mg/dL (70-99) Calcium Level 8.6mg/dL (8.5-10.1) Laboratory Tests Test 06/21/16 04:30 Sodium Level 141mmol/L (136-145) Potassium Level 4.4mmol/L (3.5-5.1) Chloride Level 106mmol/L (98-107) Carbon Dioxide Level 27mmol/L (21-32) Anion Gap 8 (6-14) Blood Urea Nitrogen 14mg/dL (7-20) Creatinine 0.9mg/dL (0.6-1.0) Estimated GFR (Cockcroft-Gault) 70.5 Glucose Level 126mg/dL (70-99) Calcium Level 8.6mg/dL (8.5-10.1) Magnesium Level 2.5mg/dL (1.8-2.4) Medications Current Medications Fentanyl Citrate (Fentanyl 2ml Vial) 50 mcg PRN Q2HR PRN IV PAIN Last administered on 06/18/16 18:02; Start 06/18/16 at 17:00 Ketorolac Tromethamine (Toradol) 30 mg PRN Q6HRS PRN IV PAIN Last administered on 06/21/16 01:51; Start 06/18/16 at 17:00; Stop 06/23/16 at 16:59 Morphine Sulfate 2 mg PRN Q2HR PRN IV PAIN Last administered on 06/20/16 21:18 ; Start 06/18/16 at 18:00 Ondansetron HCl (Zofran) 4 mg PRN Q6HRS PRN IV NAUSEA/VOMITING; Start 06/18/16 at 18:00 Prochlorperazine Edisylate (Compazine) 10 mg PRN Q6HRS PRN IV NAUSEA/VOMITING; Start 06/18/16 at 18:00 Prochlorperazine (Compazine) 25 mg PRN Q12HR PRN [place] NAUSEA/VOMITING; Start at 18:00 Cyclobenzaprine HCl (Flexeril) 10 mg Q6HRS PO Last administered on 06/21/16 06 :18; Start 06/18/16 at 18:00 Acetaminophen/ Hydrocodone Bitart (Lortab 10/325) 1 tab Q6HRS PO Last administered on 06/20/16 07:26; Start 06/18/16 at 18:00; Stop 06/20/16 at 09:19 ; Status DC Lidocaine (Lidoderm) 1 patch DAILY TD Last administered on 06/20/16 09:44; Start 06/19/16 at 09:00 Methylprednisolone (Medrol) 8 mg BID PO ; Start 06/18/16 at 09:00; Stop at 18:19; Status DC Methylprednisolone (Medrol) 4 mg BIDPCLD PO ; Start 06/18/16 at 12:30; Stop at 18:07; Status DC Methylprednisolone (Medrol) 4 mg TIDPC PO Last administered on 06/19/16 17:43 ; Start 06/19/16 at 08:30; Stop 06/19/16 at 17:31; Status DC Methylprednisolone (Medrol) 8 mg QHS PO Last administered on 06/19/16 20:23; Start 06/19/16 at 21:00; Stop 06/19/16 at 21:01; Status DC Methylprednisolone (Medrol) 4 mg QIDAFTMEAL PO Last administered on 06/20/16 20:50; Start 06/20/16 at 09:00; Stop 06/20/16 at 21:01; Status DC Methylprednisolone (Medrol) 4 mg TID PO ; Start 06/21/16 at 09:00; Stop at 21:01 Methylprednisolone (Medrol) 4 mg BID PO ; Start 06/22/16 at 09:00; Stop at 21:01 Methylprednisolone (Medrol) 4 mg DAILY PO ; Start 06/23/16 at 09:00; Stop at 09:01 Pantoprazole Sodium (Protonix) 40 mg DAILYAC PO Last administered on 06/21/16 06:22; Start 06/18/16 at 18:30 Methylprednisolone (Medrol) 16 mg ONCE ONCE PO Last administered on 06/18/16 18:30; Start 06/18/16 at 18:30; Stop 06/18/16 at 18:31; Status DC Lidocaine (Lidoderm) 1 patch 1X ONCE TD Last administered on 06/19/16 12:14; Start 06/19/16 at 12:00; Stop 06/19/16 at 12:01; Status DC Acetaminophen (Tylenol) 650 mg PRN Q6HRS PRN PO FEVER; Start 06/19/16 at 13:45 Ondansetron HCl (Zofran) 4 mg PRN Q6HRS PRN IV NAUSEA/VOMITING; Start 06/19/16 at 13:45 Methylprednisolone Acetate (Depo-Medrol 40mg Vial) 40 mg 1X ONCE IM Last administered on 06/20/16 09:47; Start 06/20/16 at 09:30; Stop 06/20/16 at 09:31 ; Status DC Bupivacaine HCl (Sensorcaine-Mpf 0.25%) 10 ml 1X ONCE IJ Last administered on 06/20/16 09:46; Start 06/20/16 at 09:30; Stop 06/20/16 at 09:31; Status DC Oxycodone/ Acetaminophen 1 tab 1 tab PRN Q4HRS PRN PO PAIN Last administered on 06/20/16 16:26; Start 06/20/16 at 09:15; Stop 06/20/16 at 17:25; Status DC Magnesium Sulfate/ Dextrose (Magnesium Sulfate PREMIX 2GM) 50 ml @ 25 mls/hr 1X ONCE IV Last administered on 06/20/16 12:55; Start 06/20/16 at 11:30; Stop 06/20/16 at 13:29; Status DC Bisacodyl (Dulcolax Tab) 10 mg PRN DAILY PRN PO CONSTIPATION Last administered on 06/20/16 12:54; Start 06/20/16 at 12:00 Diphenhydramine HCl (Benadryl) 25 mg PRN Q6HRS PRN PO ITCHING Last administered on 06/20/16 17:38; Start 06/20/16 at 17:30 Acetaminophen/ Hydrocodone Bitart (Lortab 10/325) 1 tab PRN Q4HRS PRN PO PAIN Last administered on 06/21/16 06:19; Start 06/20/16 at 17:30 Vitals/I & O Vital Sign - Last 24 Hours 06/20/16 06/20/16 06/20/16 06/20/16 11:00 14:55 19:00 20:00 Temp 98.1 97.9 97.5 98.1 97.9 97.5 Pulse 69 78 73 Resp 18 B/P 111/63 104/55 114/76 Pulse Ox 95 93 94 O2 Delivery Room Air Room Air Room Air Room Air 06/20/16 06/20/16 06/20/16 06/20/16 20:50 21:18 21:48 21:48 Resp 20 Pulse Ox 94 94 94 94 O2 Delivery Room Air Room Air Room Air Room Air 06/20/16 06/21/16 06/21/16 06/21/16 23:00 03:00 06:19 07:00 Temp 98.0 98.1 97.9 98.0 98.1 97.9 Pulse 72 64 63 Resp 18 18 20 18 B/P 104/65 122/85 131/70 Pulse Ox 94 93 93 97 O2 Delivery Room Air Room Air Room Air Room Air Intake and Output 06/20/16 06/20/16 06/21/16 15:00 23:00 07:00 Intake Total 300 ml Balance 300 ml VANE TATE MD Jun 21, 2016 08:49
[2016-06-21] MEDS ORDERED: BISACODYL 10 MG SUPP.RECT. PR ONE (09:00)
[2016-06-21] MEDS ORDERED: methylPREDNISolone 4 MG TABLET. PO SCH (09:00)
[2016-06-21] MEDS ORDERED: SODIUM PHOSPHATES 19/7GM 133 ML ENEMA. PR ONE (09:00)
[2016-06-21] MEDS: BISACODYL 5 MG TABLET.DR. PO PRN (09:06)
[2016-06-21] MEDS: LIDOCAINE (700MG/PATCH) PATCH. TD SCH (09:07)
[2016-06-21 11:00] VITALS: BP 118/67
[2016-06-21] MEDS ORDERED: CYCL10TA2 PO (11:47)
[2016-06-21] MEDS ORDERED: Lidocaine TD (11:47)
[2016-06-21] MEDS ORDERED: Hydrocodone/Acetaminophen PO (11:47)
--- NOTE | 2016-06-21 14:08 | PDOC3 ---
Discharge Summary [facility] Date of Admission: Jun 18, 2016 Discharge Date: Jun 21, 2016 Admitting Diagnosis 1. Acute back pain after lifting, 2/2 muscle spasm, post left sacroiliac join injection 06/20 2. Obesity 3. hypomagnesemia Problems: Final Diagnosis CONSULTS dr. Espinoza Brief Hospital Course Ms. Ritter is a 36 old F, was sent from [facility] for back pain after she bend down to pick a light [employer] bag, MRI showed some pinge nerve, otherwise unremarkable. pt better with left side scaroiliac joint injection on 06/20, dc home with lortab, a walker dc time 35min General: Alert, Oriented X3, Cooperative, No acute distress Heart: Regular rate, Normal S1, Normal S2 Lungs: Clear Abdomen: Normal bowel sounds Extremities: No clubbing, No cyanosis, No edema, Normal pulses, No tenderness/ swelling Skin: No rashes, No breakdown, No significant lesion Problems: Disposition home CONDITION AT DISCHARGE: Improved Diet regular Scheduled ([Lidocaine]) 1 PATCH TD DAILY Cyclobenzaprine Hcl (Cyclobenzaprine Hcl) 10 MG PO Q6HRS Scheduled PRN ([Hydrocodone/Acetaminophen]) 1 TAB PO PRN Q4HRS PRN PRN PAIN Follow Up pcp in 2 weeks ASHLI VILLALOBOS MD Jun 21, 2016 14:08
[2016-06-22] MEDS ORDERED: methylPREDNISolone 4 MG TABLET. PO SCH (09:00)
[2016-06-23] MEDS ORDERED: methylPREDNISolone 4 MG TABLET. PO SCH (09:00)
== END 2016-06-21 13:30 | disposition home or self-care (01) | DRG 552 ==
LOC: 4 NORTH 15:37
PROVIDERS: ADMIT Internal Medicine; ATTEND Internal Medicine
PROC: 3E0U33Z Introduction of Anti-inflammatory into Joints, Percutaneous Approach (ICD-10-PCS; principal; 2016-06-20)
PROC: 3E0U3BZ Introduction of Anesthetic Agent into Joints, Percutaneous Approach (ICD-10-PCS; 2016-06-20)
DX: M62.830 Muscle spasm of back (principal); Z68.41 Body mass index [BMI] 40.0-44.9, adult; M54.16 Radiculopathy, lumbar region; E66.9 Obesity, unspecified; K59.00 Constipation, unspecified; M54.30 Sciatica, unspecified side; E83.42 Hypomagnesemia; S33.8XXA Sprain of other parts of lumbar spine and pelvis, initial encounter; Z79.899 Other long term (current) drug therapy; Z79.1 Long term (current) use of non-steroidal anti-inflammatories (NSAID); Z88.8 Allergy status to other drugs, medicaments and biological substances
CPT/HCPCS: 36415; 72148; 80048; 83735; 84100; 85027; 85610; J1030; J1885; J2270; J3010; J3490; J7060; J7509; Q0163; 97116